=== PATIENT | male | born 1940 | race American Indian/Alaskan Native ===

== ENCOUNTER 2017-07-19 07:01 | Emergency (ER) | payer MEDICARE, SELFPAY ==
[2017-07-19 07:01] VITALS: BMI 25.8
[2017-07-19] MEDS ORDERED: Sodium Chloride 0.9% 1,000 ML IV ONE (07:25)
[2017-07-19] MEDS ORDERED: Sodium Chloride 0.9% 1,000 ML ONE (07:44)
--- NOTE | 2017-07-19 08:09 | RAD ---
PROCEDURE: CHEST RADIOGRAPH, 1 VIEW HISTORY: r/o infiltrate COMPARISON: 07/31/2016 FINDINGS: LUNGS: Current lung volumes less than before -crowding central pulmonary vasculature. Interval thread-like right basal discoid atelectasis and/or scarring present. PLEURA: No pneumothorax or pleural fluid seen. CARDIOVASCULAR: Top-normal heart size. Central pulmonary mild venous congestion -with accentuation due to crowding probable. Right paratracheal increased density without tracheal deviation - similar dating back to 2013 - tortuous brachiocephalic vessels 1 consideration. Stability supports benign etiology OSSEOUS STRUCTURES: Thoracic spondylosis. Bilateral shoulder arthrosis. Cervical apophyseal joint arthrosis VISUALIZED UPPER ABDOMEN: Normal. OTHER FINDINGS: None. IMPRESSION: Current volumes accentuate central pulmonary venous suspect congestion. Discoid atelectasis right lung base -interval change
[2017-07-19 08:10] LABS: BASO # 0.1 K/uL (0.0-0.2); BASO % 0.6 % (0.0-2.0); EOS # 0.1 K/uL (0.0-0.7); EOS % 1.3 % (0.0-4.0); HEMOGLOBIN 13.9 g/dL (12.0-18.0); LYMPH # 1.5 K/uL (1.0-4.3); LYMPH % 17.3 % (20.0-40.0); MEAN CELL VOLUME 92.9 fL (80.0-94.0); MEAN CORPUSCULAR HGB CONC 34.5 g/dL (33.0-37.0); MEAN PLATELET VOLUME 7.8 fL (7.2-11.7); MONO % 11.4 % (0.0-10.0); NEUT % 69.4 % (50.0-75.0); RBC 4.34 Mil/uL (4.40-5.90); RED CELL DISTRIBUTION WIDTH 14.3 % (11.5-14.5); WHITE BLOOD COUNT 8.7 K/uL (4.8-10.8)
--- NOTE | 2017-07-19 08:21 | C.PDOC ---
History Of Present Illness 76 y/o male presents to ED with complaints of RLQ pain since yesterday worse when coughing. Patient reports dry cough and denies nausea, vomiting, hematuria , blood in stool, dysuria, change in appetite or any other complaints at this time. Chief Complaint (Nursing): Abdominal Pain History Per: Patient History/Exam Limitations: no limitations Onset/Duration Of Symptoms: Days Current Symptoms Are (Timing): Still Present Location Of Pain/Discomfort: RLQ Past Medical History Reviewed: Historical Data, Nursing Documentation, Vital Signs Vital Signs: Last Vital Signs Temp 98.4 F 07/19/17 12:00 Pulse 100 H 07/19/17 12:00 Resp 18 07/19/17 12:00 BP 120/79 07/19/17 12:00 Pulse Ox 98 07/19/17 12:00 - Medical History PMH: HTN, Hypercholesterolemia Surgical History: No Surg Hx - [facility] Procedures CORONAR ARTERIOGR-2 CATH (08/27/13) LEFT HEART CARDIAC CATH (08/27/13) LT HEART ANGIOCARDIOGRAM (08/27/13) Family History: States: No Known Family Hx - Social History Hx Tobacco Use: No Hx Alcohol Use: Yes (occasional drinker (whiskey)) Hx Substance Use: No - Immunization History Hx Tetanus Toxoid Vaccination: No Hx Influenza Vaccination: Yes Hx Pneumococcal Vaccination: No Review Of Systems Constitutional: Negative for: Fever, Chills Respiratory: Positive for: Cough Gastrointestinal: Positive for: Abdominal Pain. Negative for: Nausea, Vomiting Genitourinary: Negative for: Dysuria, Hematuria Skin: Negative for: Rash Physical Exam - Physical Exam Appears: Non-toxic, No Acute Distress Skin: Warm, Dry, No Rash Head: Atraumatic, Normacephalic Eye(s): bilateral: Normal Inspection Oral Mucosa: Moist Neck: Normal ROM, Supple Cardiovascular: Rhythm Regular Respiratory: Normal Breath Sounds, No Rales, No Rhonchi, No Wheezing Gastrointestinal/Abdominal: Soft, Tenderness (RLQ), No Guarding, No Rebound Back: No CVA Tenderness Neurological/Psych: Oriented x3 ED Course And Treatment - Laboratory Results Result Diagrams: 07/19/17 08:04 07/19/17 08:04 O2 Sat by Pulse Oximetry: 96 (RA) Pulse Ox Interpretation: Normal Disposition - Disposition Referrals: [facility] Damaso Req, [Non-Staff] - Disposition: HOME/ ROUTINE Disposition Time: 11:00 Condition: GOOD Additional Instructions: Thank you for letting us take care of you today. The emergency medical care you received today was directed at your acute symptoms. If you were prescribed any medication, please fill it and take as directed. It may take several days for your symptoms to resolve. Return to the Emergency Department if your symptoms worsen, do not improve, or if you have any other problems. Please contact your doctor or call one of the physicians/clinics you have been referred to that are listed on the Patient Visit Information form that is included in your discharge packet. Bring any paperwork you were given at discharge with you along with any medications you are taking to your follow up visit. Our treatment cannot replace ongoing medical care by a primary care provider (PCP) outside of the emergency department. Thank you for allowing the [facility] team to be part of your care today. Please follow up with your doctor in 2-3 days for re-evaluation and further management. Prescriptions: Ranitidine HCl [Zantac] 150 mg PO BID #20 tablet Instructions: Abdominal Pain (ED) Forms: [employer] ([place]) - Clinical Impression Clinical Impression: Abdominal pain - Scribe Statement The provider has reviewed the documentation as recorded by the Scribe Romulo Louis All medical record entries made by the Scribe were at my direction and personally dictated by me. I have reviewed the chart and agree that the record accurately reflects my personal performance of the history, physical exam, medical decision making, and the department course for this patient. I have also personally directed, reviewed, and agree with the discharge instructions and disposition.
[2017-07-19 08:28] LABS: ALB/GLOB RATIO 1.1 (1.0-2.1); ALT/SGPT 44 U/L (21-72); AST/SGOT 23 U/L (17-59); BLOOD UREA NITROGEN 15 mg/dL (9-20); CALCIUM 9.3 mg/dl (8.6-10.4); GFR AFRICAN-AMERICAN > 60; GFR NON-AFRICAN AMERICAN > 60; LIPASE 36 U/L (23-300)
[2017-07-19 08:33] LABS: SQUAMOUS EPITHIAL < 1 /hpf (0-5); URINE BILIRUBIN NEGATIVE (NEGATIVE); URINE BLOOD NEGATIVE (NEGATIVE); URINE CLARITY Clear (Clear); URINE COLOR Yellow (YELLOW); URINE GLUCOSE (UA) NORMAL (Normal); URINE LEUKOCYTE ESTERASE TRACE Leu/uL (Negative); URINE NITRATE NEGATIVE (NEGATIVE); URINE PROTEIN NEGATIVE (NEGATIVE); URINE UROBILINOGEN NORMAL mg/dL (0.2-1.0)
[2017-07-19] MEDS ORDERED: Iodixanol 320 MG/ML 100 ML BOTTLE IV ONE (09:07)
--- NOTE | 2017-07-19 10:54 | CT ---
PROCEDURE: CT Abdomen and Pelvis with contrast HISTORY: right-sided abdominal pain COMPARISON: None available. TECHNIQUE: Contrast dose: 100 mL Visipaque IV Radiation dose: Total exam DLP = 749.02 mGy-cm. This CT exam was performed using one or more of the following dose reduction techniques: Automated exposure control, adjustment of the mA and/or kV according to patient size, and/or use of iterative reconstruction technique. FINDINGS: LOWER THORAX: Trace right pleural effusion and associated consolidation. No visible pneumothorax. Small hiatal hernia. LIVER: Unremarkable. GALLBLADDER AND BILE DUCTS: Unremarkable. PANCREAS: Unremarkable. SPLEEN: Unremarkable. ADRENALS: Unremarkable. KIDNEYS AND URETERS: The kidneys enhance symmetrically. No hydronephrosis or obstructing calculus identified. Bilateral low-density lesions appear cystic. Exophytic left anterior lower pole lesion demonstrates peripheral thin rim of calcification. VASCULATURE: No aortic aneurysm. BOWEL: Stomach is nondistended. Lack of oral contrast limits evaluation for bowel pathology. Bowel loops appear within normal limits of caliber without evidence of obstruction. APPENDIX: The appendix appears within normal limits of caliber. No secondary signs of acute appendicitis. PERITONEUM: No significant free fluid. No definite free air. LYMPH NODES: No bulky adenopathy identified. BLADDER: Under distention of the urinary bladder limits evaluation. REPRODUCTIVE: The prostate gland measures approximately 3.4 x 5.1 cm and contains calcifications. BONES: Degenerative changes of the spine and pelvis. OTHER FINDINGS: None. IMPRESSION: Trace right pleural effusion and associated consolidation. Bilateral low-density lesions appear cystic. Exophytic left anterior lower pole hypodense lesion appears cystic with peripheral thin rim of calcification. Additional findings as above.
[2017-07-19 12:01] VITALS: BP 120/79; PULSE 100; RESP 18; TEMP 98.4
[2017-07-19 18:30] VITALS: O2SAT 96
== END 2017-07-19 12:00 | disposition home or self-care (01) ==
LOC: C.ER 07:01
DX: R10.31 Right lower quadrant pain (principal)
CPT/HCPCS: 71045; 74177; 80053; 81001; 83690; 85025; 87804; 99285; J7040; Q9967